=== PATIENT | female | born 1945 | race Caucasian/White ===

== ENCOUNTER → 2016-11-18 | Outpatient (CLI) | payer OTHER, MEDICARE ==
[~2016-11-18] VITALS: Ht 172.7 cm; Wt 151.7 kg
[~2016-11-18] MED LIST: ADULT LOW DOSE81 MG PO; AMLODIPINE BESYL5 MG PO; BENICAR20 MG PO; CYCLOBENZAPRINE10 MG PO; DIOVAN PO; ESCITALOPRAM OX10 MG PO; GABAPENTIN100 MG PO; HYDROCODON-ACE1 EAC8 PO; HYDROCODONE-AP1 EAC6 PO; LASIX 40 MG TAB40 M2 PO; LEVOTHROID; LEVOTHYROXIN0.025 MG PO; NEURONTIN 300300 M1 PO; PAROXETINE HCL40 MG PO; PAXIL10 MG PO; PRILOSEC 20 MG20 MG PO; VALSARTAN160 MG PO; ZOCOR 20 MG TAB20 M1 PO
--- NOTE | ~2016-11-18 | HPC ---
[facility] [address] [place] [address] PAIN MANAGEMENT CONSULTATION Name: BRAYAN PLASCENCIA Room #: REG [facility] [place].#: [id number] Admission: 11/18/16 Attend Phys: Wolfgang Boyce MD Discharge: Date of : 43 Report #: [id number] THIS REPORT FOR: //name// CC: Phi Boyce DATE OF SERVICE: 11/18/2016 Followup visit for low back pain with radiculopathy related to significant degenerative disk at L4-L5. The patient returns to pain clinic today and we spent the first 15 minutes discussing the recent passing of her daughter. Her daughter had some chronic illness, but her was unexpected. She had a sudden headache and in her own home. It was felt that she suffered a heart attack or perhaps cerebrovascular event. The patient is grieving appropriately. I spent fair amount of time today supporting her and offering my condolences. Her chronic back pain has been worse as one might expect. She has also been . Pain is 9/10, burning, sharp and aching. It is worse with standing, prolonged sitting and getting out of bed. She has used gabapentin and hydrocodone in the past. She is completely out of hydrocodone, at one time taking up to 6 tablets a day. We had a long talk as well about using pain medication. When the pain is at a level of 9/10, I think it is reasonable for her to use a small amount of hydrocodone under terms of our discussion today. Dr. Guzman also provides it. I gave her 60 tablets to utilize 1-2 tablets a day if the pain is intractable. This should be helpful for her in her activities of daily living. She does have some GI issues and needs to be cautious with alternative medications including nonsteroidal anti-inflammatory drugs. PHYSICAL EXAMINATION: She was a bit subdued and tearful today as we discussed her daughter. She is always very pleasant and respectful. Blood pressure is 160/85, heart rate 83, BMI is 50.9. She is able to move from a sitting to standing position and ambulates without antalgic features. Sensation is normal in legs and she has good strength. Straight leg raising reproduces pain primarily in the left leg. She does have some diffuse myofascial tenderness consistent with fibromyalgia. IMPRESSION: Lumbar radiculopathy, L4-L5 and L5-S1, worse on the left following an L4 distribution. RECOMMENDATION: Epidural steroid injection L4-L5 under fluoroscopic guidance. PROCEDURE: She was taken to fluoroscopic suite for the treatment where she was placed prone and the skin was prepped with ChloraPrep. Skin was anesthetized [address] [address] PAIN MANAGEMENT CONSULTATION Name: BRAYAN PLASCENCIA Room #: REG LIZ Larson#: [id number] Admission: 11/18/16 Attend Phys: Wolfgang Boyce MD Discharge: Date of : 43 Report #: [id number] over the L4-L5 interspace and a 20-gauge Tuohy epidural needle advanced on first attempt into the epidural space with loss of resistance. There was no blood or CSF aspirated. 1 mL of Omnipaque was injected with good spread of dye observed in the epidural space. It was followed by 3 mL of 0.5% lidocaine mixed with 80 mg of triamcinolone. She tolerated the procedure well and was observed for 45 minutes and discharged. Followup visit planned as needed. By: 1810 1850 Wolfgang Boyce MD /nt
[2016-11-18 09:08] VITALS: BP 160/85
== END | disposition home or self-care (01) ==
LOC: PAIN 07:07
DX: M54.16 Radiculopathy, lumbar region (principal); Z79.899 Other long term (current) drug therapy

== ENCOUNTER → 2017-08-10 | Outpatient (CLI) | payer OTHER, MEDICARE ==
[~2017-08-10] VITALS: Ht 170.2 cm; Wt 149.2 kg
[~2017-08-10] MED LIST changes: +SYNTHROID50 MCG PO; +XANAX 0.5 MG0.5 MG PO
--- NOTE | ~2017-08-10 | P ---
[facility] [place] [address] PROCEDURE REPORT Name: BRAYAN PLASCENCIA Room #: REG [facility]#: [id number] Admission: 08/10/17 Attend Phys: Sridhar Brower Discharge: Date of : 43 Report #: [id number] THIS REPORT FOR: //name// CC: Sridhar Guzman MD DATE OF SERVICE: 08/10/2017 PROCEDURE PERFORMED: Colonoscopy with biopsies. HISTORY OF PRESENT ILLNESS: The patient is a 72-year-old female with a history of colon polyps, last colonoscopy was in 2009. No family history. She denies any symptoms. DESCRIPTION OF PROCEDURE: The risks and benefits of the procedure were explained to the patient, those risks including but not limited to bleeding, perforation, the risk of sedation. She understood these risks and gave informed consent. Sedation was given using propofol per anesthesia. Next, a digital rectal exam was initially performed, which was normal. Next, using a standard Fujinon colonoscope, the scope was placed in the patient's anus and advanced under direct vision to the cecum. The overall prep was good. In the cecum, there were two 3-4 mm sessile polyps, both were removed with cold forceps. In the ascending colon, a 5 mm sessile polyp also removed with cold forceps. Transverse colon was normal. Descending colon, 4 mm sessile polyp removed by cold forceps. Sigmoid colon, scattered diverticulosis was noted. No evidence of inflammation. The rectal mucosa was normal. On retroflexion, no abnormalities were noted. Scope was then withdrawn and the procedure terminated. The patient tolerated the procedure well. IMPRESSION: 1. Four colonic polyps as described above. 2. Sigmoid diverticulosis. 3. Otherwise, normal colonoscopy. RECOMMENDATIONS: 1. Await biopsy results. 2. If polyps are hyperplastic, repeat in 10 years; if adenomatous polyp, repeat in 5 years. Thank you for allowing me to participate in her care. <ELECTRONICALLY SIGNED> By: Sridhar Aguirre MD 08/15/17 0814 1110 1311 Sridhar Aguirre MD /nt
== END ==
LOC: GI 06:27
DX: Z12.11 Encounter for screening for malignant neoplasm of colon (principal); D12.0 Benign neoplasm of cecum; D12.2 Benign neoplasm of ascending colon; D12.4 Benign neoplasm of descending colon; Z86.010 Personal history of colon polyps; K63.5 Polyp of colon; K57.30 Diverticulosis of large intestine without perforation or abscess without bleeding; I10 Essential (primary) hypertension; J45.909 Unspecified asthma, uncomplicated; Z90.710 Acquired absence of both cervix and uterus; Z87.891 Personal history of nicotine dependence; Z90.49 Acquired absence of other specified parts of digestive tract; Z98.41 Cataract extraction status, right eye; Z98.42 Cataract extraction status, left eye; Z79.899 Other long term (current) drug therapy
CPT/HCPCS: 62110; 62900

== ENCOUNTER → 2018-02-09 | Outpatient (CLI) | payer OTHER, MEDICARE ==
[~2018-02-09] VITALS: Ht 167.6 cm; Wt 152.7 kg
[~2018-02-09] MED LIST changes: +VITAMIN D2000 UNIT PO; +VITAMIN D50000 UNIT PO
--- NOTE | ~2018-02-09 | HPC ---
[facility] [address] [place] [address] PAIN MANAGEMENT CONSULTATION Name: BRAYAN PLASCENCIA Room #: REG [facility].#: [id number] Admission: 02/09/18 Attend Phys: Wolfgang Boyce MD Discharge: Date of : 43 Report #: [id number] THIS REPORT FOR: //name// CC: Phi Boyce DATE OF SERVICE: 02/09/2018 CHIEF COMPLAINT: Low back pain with radiculopathy. It has been over a year since I last saw the patient. Over the course of several years, she has received epidural injections with good response. Her last injection provided several months of pain relief. She has been busy and been unable to get back into the pain clinic, but is here today hoping for another epidural injection. She describes her pain intensity is as high as 9/10. It radiates down into the back and in the posterior aspect of both legs. At night, she gets up and sleeps in the recliner. Stretching helps. There are times when her pain is so bad that her waist all the way down her leg locks up. She saw a automatic wheel line operator who diagnosed deficiency of vitamin D and she has been receiving injections once a week along with 2000 International Units a day. She is not sure this has helped. She complains of shoulder pain and has osteoarthritis. Over the course of last year, most of her pains have increased in intensity. MEDICATIONS: Reviewed and reconciled. She is currently receiving from primary amlodipine, Zocor, Prilosec, valsartan, Lexapro, levothyroxine, Lasix, alprazolam, cholecalciferol. She takes no pain medication. PHYSICAL EXAMINATION: She is morbidly obese with a BMI of 54.4, blood pressure 158/72, heart rate 62, respirations 20. She is able to move from sitting to standing position, but her gait is uncomfortable and antalgic. She has pain and tenderness across her low back. Pain noted with both forward flexion and extension. Straight leg raising bilaterally reproduces pain into the low back following an L5-S1 distribution. X-ray reports show that she has evidence of spinal stenosis in the cervical region, but I do not have enough evidence of disease in the lumbar spine. Plain film x-rays have indicated there is a chronic and old longstanding degenerative disk at L4-L5. There is a large disk osteophyte complex to the right of midline. That is where we have provided with injections before providing the best relief. I likely inject her today in that location. IMPRESSION: Lumbar radiculopathy. [address] [address] PAIN MANAGEMENT CONSULTATION Name: BRAYAN PLASCENCIA Room #: REG [facility] [place]ha#: [id number] Admission: 02/09/18 Attend Phys: Wolfgang Boyce MD Discharge: Date of : 43 Report #: [id number] PROCEDURE: She was taken to fluoroscopic suite, placed prone, skin prepped with ChloraPrep. Skin anesthetized over the L4-L5 interspace. A 20-gauge Tuohy epidural needle advanced first attempt in the epidural space with loss of resistance technique. There was no blood or CSF aspirated. 1 mL of Omnipaque was injected. Good spread of dye observed in the epidural space followed by 3 mL of 0.5% lidocaine mixed with 80 mg of triamcinolone. She tolerated the procedure well. There was no discomfort in the recovery room and she was discharged with a pain score of 0. Followup visit as needed. By: 1643 1229 Wolfgang Boyce MD /nt
[2018-02-09 13:31] VITALS: BP 158/72
== END | disposition home or self-care (01) ==
LOC: PAIN 06:56
DX: M51.16 Intervertebral disc disorders with radiculopathy, lumbar region (principal); M19.019 Primary osteoarthritis, unspecified shoulder; E66.01 Morbid (severe) obesity due to excess calories; M48.02 Spinal stenosis, cervical region; Z79.899 Other long term (current) drug therapy; Z68.43 Body mass index [BMI] 50.0-59.9, adult; Z87.891 Personal history of nicotine dependence

== ENCOUNTER → 2018-03-16 | Outpatient (CLI) | payer OTHER, MEDICARE ==
[~2018-03-16] VITALS: Ht 167.6 cm; Wt 152.0 kg
--- NOTE | ~2018-03-16 | HPC ---
[facility] [place] [address] PAIN MANAGEMENT CONSULTATION Name: BRAYAN PLASCENCIA Room #: REG [facility].#: [id number] Admission: 03/16/18 Attend Phys: Wolfgang Boyce MD Discharge: Date of : 43 Report #: [id number] THIS REPORT FOR: //name// CC: CEFERINO Boyce DATE OF SERVICE: 03/16/2018 Followup visit for chronic low back pain with radiculopathy. HISTORY OF PRESENT ILLNESS: The patient returns to pain clinic today for repeat epidural injection. She had good response on 02/09/2018. She has received 2 injections in a row on several occasions, most recently in 2015. Otherwise, we tend to spread her injections out. She would like another injection before Kristie and I have agreed to do so. Pain is as noted in January, low back radiating down the posterior aspect of both legs, worse at night. Pain score was 9/10 at last visit, but today, she reports that her pain is less, even at a peak it is 7/10 and at times it is more moderate at 5. PHYSICAL EXAMINATION AND PQRS: She has a history of osteoarthritis of knees, hands, elbows, wrist, neck and spine. She is morbidly obese with a BMI of 54, blood pressure 154/84, heart rate 85, respirations 97. Pain intensity is 7/10. She is a fall risk, having fallen in the last 3 months due to weakness. MEDICATIONS: She is on no blood thinners. She takes medication for hypertension. All medications are reviewed and reconciled and found on the electronic medical record. She is no opioid medication at this time, but is at some high risk by the opioid risk tool for addiction and carefully avoids the medication. SOCIAL HISTORY: She denies use of tobacco or alcohol. IMPRESSION: 1. Chronic low back pain with radiculopathy. 2. Morbid obesity. RECOMMENDATIONS: Repeat epidural injection L4-L5 under fluoroscopic guidance. She was taken to the fluoroscopic suite, placed prone. Skin prepped with ChloraPrep. Skin anesthetized over the L4-L5 interspace. A 20-gauge Tuohy epidural needle advanced at first attempt in the epidural space with loss of resistance technique. There was no blood nor CSF aspirated. 1 mL of Omnipaque injected. Good spread of dye observed in the epidural space followed by 3 mL of [facility] [address] [place] [address] PAIN MANAGEMENT CONSULTATION Name: BRAYAN PLASCENCIA Room #: REG LI[facility] Larson#: [id number] Admission: 03/16/18 Attend Phys: Wolfgang Boyce MD Discharge: Date of : 43 Report #: [id number] 0.5% lidocaine mixed with 80 mg of triamcinolone. He tolerated the procedure well and was observed for 45 minutes and discharged. Follow up as needed. By: [id number] Wolfgang Boyce MD /osman
[2018-03-16 13:02] VITALS: BP 154/84
== END | disposition home or self-care (01) ==
LOC: PAIN 12:53
DX: M54.16 Radiculopathy, lumbar region (principal); G89.29 Other chronic pain; I10 Essential (primary) hypertension; M19.90 Unspecified osteoarthritis, unspecified site; E66.01 Morbid (severe) obesity due to excess calories; Z68.43 Body mass index [BMI] 50.0-59.9, adult; Z79.891 Long term (current) use of opiate analgesic; Z98.890 Other specified postprocedural states; Z87.891 Personal history of nicotine dependence

== ENCOUNTER → 2018-08-14 | Outpatient (CLI) | payer OTHER, MEDICARE ==
[~2018-08-14] VITALS: Ht 167.6 cm; Wt 146.2 kg
[~2018-08-14] MED LIST changes: +COZAAR 25 MG TA25 M1 PO; +NORCO 7.5-3251 EACH PO
--- NOTE | ~2018-08-14 | HPC ---
[facility] [place] [address] PAIN MANAGEMENT CONSULTATION Name: BRAYAN PLASCENCIA Room #: REG [facility].#: [id number] Admission: 08/14/18 ������������������ Attend Phys: Wolfgang Boyce MD Discharge: ������������������ Date of : 43 Report #: [id number] THIS REPORT FOR: //name// CC: Phi Boyce DATE OF SERVICE: 08/14/2018 CHIEF COMPLAINT: Followup visit for chronic low back pain with radiculopathy. The patient returns to pain clinic today for an epidural injection. She is morbidly obese and complains of pain that is in her back that radiates down into her legs. Epidural injections have provided some relief for her with sustained improvement. She has noticed in the last few injections that her pain relief has been less notable. We have not done an MRI in some time. I plan to repeat her injection today and I am going to inject her above the L4-L5 level with a larger volume of medications, see if we can bring about better improvement. She scores her pain as a 5/10, chronic deep and aching, radiates through the buttocks. PQRS REVIEW: 1. She has osteoarthritis of the knees, hands, elbows, wrist, cervical spine and lumbar spine. 2. She is morbidly obese with a BMI of 52.1. Weight loss strategies have been discussed. 3. Blood pressure 156/98, heart rate 82. 4. Pain intensity 5/10. 5. She is not considered a fall risk, but has had a trip fall within the last 3 months. 6. She is on no blood thinners. 7. She has a history of hypertension and is under treatment by her primary care physician. All medications were reviewed and reconciled from the electronic medical record including amlodipine for her blood pressure and Lasix, which she takes on a daily basis. 8. She is not on an opioid agreement. 9. She has completed an opioid risk tool scoring 10, which is considered high risk for addiction. We do not provide medications. 10. Functional assessment score is 51/70. 11. She denies use of tobacco or alcohol. IMPRESSION: 1. Chronic low back pain with radiculopathy. 2. Morbid obesity. [facility] [address] [place] [address] PAIN MANAGEMENT CONSULTATION Name: BRAYAN PLASCENCIA Room #: REG [facility]#: [id number] Admission: 08/14/18 ������������������ Attend Phys: Wolfgang Boyce MD Discharge: ������������������ Date of : 43 Report #: [id number] PROCEDURE: Lumbar epidural injection L3-L4 under fluoroscopic guidance. PROCEDURE: She was taken to fluoroscopic suite, placed prone, skin prepped with ChloraPrep. Skin anesthetized over the L3-L4 interspace. A 20-gauge Tuohy epidural needle advanced in the epidural space with loss of resistance technique. No blood or CSF aspirated. 1 mL of Omnipaque was injected. Good spread of dye observed in the epidural space followed by 3 mL of 0.5% lidocaine mixed with 80 mg triamcinolone. She tolerated the procedure well and was observed for 45 minutes and discharged. Follow up as needed. ��������������������������������������������� ���������������������������������������� By: ��������������������������������������������� 1758 [id number] Wolfgang Boyce MD /nt
[2018-08-14 15:07] VITALS: BP 156/98
--- NOTE | 2018-08-14 15:14 | NUR ---
Pain Clinic Assessment: 1. History of Osteoarthritis: KNEES HANDS ELBOWS WRIST, NECK , SPINE History of Rheumatoid Arthritis: Not Applicable 2. Height: 5 ft. 6 in. 167.6 cm. Weight: 322.4 lb. oz. 146.240 kg. Patient's BMI: 52.1 3. Vital Signs: BP: 156/98 Pulse: 82 Resp: 16 Temp: 02 Sat: 95 ECG Mon: 4. Pain Intensity: 5 5. Fall Risk: Dizziness: N Needs help standing or walking: N Fallen in the last 3 months: Y Fall risk comments: 6. Patient on Blood Thinner: None 7. History of Hypertension: Y 8. Opioid Therapy greater than 6 weeks: N Opiate Contract Signed: 9. Risk Assessment Tool Provided: 10 HIGH 10. Functional Assessment Tool: 11. Recreational Drug Use: Never Drug Type: Tobacco Use: Former Smoker Tobacco Type: Amount or Packs/day: How Many Years: Alcohol Use: No Frequency: Quant:
== END | disposition home or self-care (01) ==
LOC: PAIN 06:57
DX: M54.16 Radiculopathy, lumbar region (principal); G89.29 Other chronic pain; I10 Essential (primary) hypertension; E66.01 Morbid (severe) obesity due to excess calories; M17.10 Unilateral primary osteoarthritis, unspecified knee; M19.049 Primary osteoarthritis, unspecified hand; M19.029 Primary osteoarthritis, unspecified elbow; M19.039 Primary osteoarthritis, unspecified wrist; M79.7 Fibromyalgia; M71.9 Bursopathy, unspecified; Z68.43 Body mass index [BMI] 50.0-59.9, adult; Z87.891 Personal history of nicotine dependence; Z79.899 Other long term (current) drug therapy

== ENCOUNTER → 2018-11-20 | Outpatient (CLI) | payer OTHER, MEDICARE ==
[~2018-11-20] VITALS: Ht 167.6 cm; Wt 144.1 kg
--- NOTE | ~2018-11-20 | HPC ---
[facility] [address] [address] PAIN MANAGEMENT CONSULTATION Name: BRAYAN PLASCENCIA [id number] Admission: 11/20/18 ������������������ Attend Phys: Wolfgang Boyce MD Discharge: ������������������ Date of : 43 Report #: [id number] THIS REPORT FOR: //name// CC: Phi Boyce DATE OF SERVICE: 11/20/2018 Followup visit for chronic low back pain with radiculopathy. SUBJECTIVE: The patient returns to pain clinic today for an epidural injection. She has had excellent response to these injections performed periodically to help with pain that radiates through the L4-L5 distribution. She has marked spur and degenerative disk at L4-L5. I have injected at both L3-L4 and L4-L5, L3-L4 seems to be the best location for her based upon her response. She typically receives substantial pain relief for several months at a time. I reviewed her MRI scan again showing degenerative changes at these levels. Today, she presents to the pain clinic once again complaining of pain at a level of 6-7 at its worst, it is a 5 today. It is worse with lifting. She has been lifting her who has had numerous problems with compression fractures and other issues. He is 77 years old and has needed a fair amount of caregiving over the course of the last several years. PQRS REVIEW: 1. She does have some osteoarthritis involving knees, hands, elbows, wrist, knee and neck. BMI is 51. She recognizes this contributes to her pain, has made efforts to try and control her weight, but it is difficult. 2. Vital signs 154/87, heart rate 70, respirations 20. 3. Pain intensity 5/10. 4. She has fallen once in the last 3 months, would therefore be considered a fall risk. She normally needs no help standing and denies dizziness. 5. No blood thinners. 6. History of hypertension, under treatment. All medications were reviewed and reconciled from the electronic medical record. 7. She is not on opioids. 8. She is considered at high risk by the opioid risk tool scoring 10. We do not prescribe medications for her. 9. Her functional assessment tool is 51/70. 10. She is a former smoker, does not smoke at this time. Denies use of alcohol. PHYSICAL EXAMINATION: GENERAL: She is a louisa 73-year-old. VITAL SIGNS: As noted above. She independently moves from sitting to standing [address] [address] PAIN MANAGEMENT CONSULTATION Name: BRAYAN PLASCENCIA Room #: REG [facility]#: [id number] Admission: 11/20/18 ������������������ Attend Phys: Wolfgang Boyce MD Discharge: ������������������ Date of : 43 Report #: [id number] position, walks with an antalgic gait. CHEST: Clear. CARDIAC: Rhythm is regular with no wheezing. MUSCULOSKELETAL: Examination of the spine reveals tenderness across the lumbosacral segment. Pain with forward flexion, extension, and bilateral straight leg raising discomfort. IMPRESSION: Lumbar radiculopathy secondary to degenerative disk disease, chronic. Excellent response to radicular pain with epidural injections provided at 3-4 month intervals. PROCEDURE: Lumbar epidural steroid injection L3-L4 under fluoroscopic guidance. DESCRIPTION OF PROCEDURE: She was taken to fluoroscopic suite, placed prone, skin prepped with ChloraPrep. Skin anesthetized over L3-L4. Using biplanar fluoroscopic views, I advanced the needle into the epidural space. Good loss of resistance was achieved. There was no blood or CSF aspirated. A 1 mL of Omnipaque was injected. Good spread of dye observed into the epidural space, was followed then by 3 mL of 0.5% lidocaine mixed with 80 mg of triamcinolone. She tolerated the procedure well. There were no complications. She was taken to recovery room where she was observed for 30 minutes and discharged in good condition. FOLLOWUP VISIT: Planned as needed. ��������������������������������������������� ���������������������������������������� By: ��������������������������������������������� [id number] Wolfgang Boyce MD /nt
[2018-11-20 15:08] VITALS: BP 154/87
--- NOTE | 2018-11-20 15:29 | NUR ---
Pain Clinic Assessment: 1. History of Osteoarthritis: KNEES HANDS ELBOWS WRIST, NECK , SPINE History of Rheumatoid Arthritis: Not Applicable 2. Height: 5 ft. 6 in. 167.6 cm. Weight: 317.6 lb. oz. 144.063 kg. Patient's BMI: 51.3 3. Vital Signs: BP: 154/87 Pulse: 70 Resp: 20 Temp: 02 Sat: 97 ECG Mon: 4. Pain Intensity: 5 5. Fall Risk: Dizziness: N Needs help standing or walking: N Fallen in the last 3 months: Y Fall risk comments: 6. Patient on Blood Thinner: None 7. History of Hypertension: Y 8. Opioid Therapy greater than 6 weeks: N Opiate Contract Signed: 9. Risk Assessment Tool Provided: 10 HIGH 10. Functional Assessment Tool: 11. Recreational Drug Use: Never Drug Type: Tobacco Use: Former Smoker Tobacco Type: Amount or Packs/day: How Many Years: Alcohol Use: No Frequency: Quant:
== END | disposition home or self-care (01) ==
LOC: PAIN 06:59
DX: M51.16 Intervertebral disc disorders with radiculopathy, lumbar region (principal); G89.29 Other chronic pain; I10 Essential (primary) hypertension; M19.90 Unspecified osteoarthritis, unspecified site; M79.7 Fibromyalgia; Z87.891 Personal history of nicotine dependence; Z98.890 Other specified postprocedural states; Z79.899 Other long term (current) drug therapy

== ENCOUNTER → 2020-02-14 | Outpatient (CLI) | payer OTHER, MEDICARE ==
[~2020-02-14] VITALS: Ht 167.6 cm; Wt 135.3 kg
[~2020-02-14] MED LIST changes: +LOSARTAN POTAS100 MG PO
[2020-02-14 13:08] VITALS: BP 181/87
--- NOTE | 2020-02-14 13:34 | NUR ---
Pain Clinic Assessment: 1. History of Osteoarthritis: KNEES HANDS ELBOWS WRIST, NECK , SPINE History of Rheumatoid Arthritis: Not Applicable 2. Height: 5 ft. 6 in. 167.6 cm. Weight: 298.2 lb. oz. 135.263 kg. Patient's BMI: 48.2 3. Vital Signs: BP: 181/87 Pulse: 65 Resp: 22 Temp: 02 Sat: 98 ECG Mon: 4. Pain Intensity: 4 5. Fall Risk: Dizziness: N Needs help standing or walking: N Fallen in the last 3 months: N Fall risk comments: 6. Patient on Blood Thinner: None 7. History of Hypertension: Y 8. Opioid Therapy greater than 6 weeks: N Opiate Contract Signed: 9. Risk Assessment Tool Provided: 4 MOD 10. Functional Assessment Tool: 11. Recreational Drug Use: Never Drug Type: Tobacco Use: Former Smoker Tobacco Type: Amount or Packs/day: How Many Years: Alcohol Use: No Frequency: Quant:
== END | disposition home or self-care (01) ==
LOC: PAIN 06:55
PROVIDERS: ATTEND Anesthesiology Pain Medicine
DX: M47.26 Other spondylosis with radiculopathy, lumbar region (principal); G89.29 Other chronic pain; M19.90 Unspecified osteoarthritis, unspecified site; Z98.890 Other specified postprocedural states; Z79.899 Other long term (current) drug therapy; Z87.891 Personal history of nicotine dependence

== ENCOUNTER 2020-07-21 05:54 | Emergency (ER) | payer OTHER, MEDICARE ==
[~2020-07-21] VITALS: Ht 170.2 cm; Wt 136.1 kg
[2020-07-21 05:56] VITALS: BP 104/68
[2020-07-21] MEDS ORDERED: NORCO5 PO (07:57)
== END 2020-07-21 08:17 | disposition home or self-care (01) ==
LOC: ER 05:54
DX: Z04.3 Encounter for examination and observation following other accident (principal); R51.9 Headache, unspecified; M79.601 Pain in right arm; I10 Essential (primary) hypertension; E03.9 Hypothyroidism, unspecified; E78.5 Hyperlipidemia, unspecified; K21.9 Gastro-esophageal reflux disease without esophagitis; Z79.899 Other long term (current) drug therapy; W18.39XA Other fall on same level, initial encounter; Y93.89 Activity, other specified; Y92.89 Other specified places as the place of occurrence of the external cause; Y99.8 Other external cause status

== ENCOUNTER → 2020-09-18 | Outpatient (CLI) | payer OTHER, MEDICARE ==
[~2020-09-18] VITALS: Ht 167.6 cm; Wt 134.8 kg
[~2020-09-18] MED LIST changes: +NORCO5 PO
[2020-09-18 13:55] VITALS: BP 159/77
--- NOTE | 2020-09-18 14:29 | NUR ---
Pain Clinic Assessment: 1. History of Osteoarthritis: KNEES HANDS ELBOWS WRIST, NECK , SPINE History of Rheumatoid Arthritis: Not Applicable 2. Height: 5 ft. 6 in. 167.6 cm. Weight: 297.2 lb. oz. 134.809 kg. Patient's BMI: 48.0 3. Vital Signs: BP: 159/77 Pulse: 66 Resp: 16 Temp: 02 Sat: 98 ECG Mon: 4. Pain Intensity: 4 5. Fall Risk: Dizziness: N Needs help standing or walking: N Fallen in the last 3 months: N Fall risk comments: 6. Patient on Blood Thinner: None 7. History of Hypertension: Y 8. Opioid Therapy greater than 6 weeks: N Opiate Contract Signed: 02/14/20 9. Risk Assessment Tool Provided: 4 MOD 10. Functional Assessment Tool: 11. Recreational Drug Use: Never Drug Type: Tobacco Use: Former Smoker Tobacco Type: Amount or Packs/day: How Many Years: Alcohol Use: No Frequency: Quant:
== END | disposition home or self-care (01) ==
LOC: PAIN 08:50
PROVIDERS: ATTEND Anesthesiology Pain Medicine
DX: M54.16 Radiculopathy, lumbar region (principal); G89.29 Other chronic pain; I10 Essential (primary) hypertension; M19.90 Unspecified osteoarthritis, unspecified site; E66.01 Morbid (severe) obesity due to excess calories; Z98.890 Other specified postprocedural states; Z79.899 Other long term (current) drug therapy; Z87.891 Personal history of nicotine dependence; Z68.44 Body mass index [BMI] 60.0-69.9, adult